=== PATIENT | male | born 1970 | race Caucasian/White ===

== ENCOUNTER 2017-08-14 06:38 | Day surgery (SDC) | payer MEDICARE, MEDICAID ==
[2017-08-14] MEDS ORDERED: PROPOFOL 40 ML (08:25)
[2017-08-14] MEDS ORDERED: LIDOCAINE 2% (SDV) 5 ML INJ (08:25)
[2017-08-14] MEDS ORDERED: EPHEDrine SULFATE 50 MG/5 ML SYG (08:52)
== END 2017-08-14 12:20 | disposition home or self-care (01) ==
LOC: GIL 06:38
DX: K59.09 Other constipation (principal); E03.9 Hypothyroidism, unspecified
CPT/HCPCS: 45378